=== PATIENT | male | born 1980 | race African-American/Black ===

== ENCOUNTER 2023-01-10 13:57 | Emergency (ER) | payer OTHER ==
[~2023-01-10] VITALS: Ht 165.1 cm; Wt 90.7 kg
[2023-01-10 14:00] VITALS: BP 143/80
[2023-01-10 18:20] VITALS: BP 159/86
--- NOTE | 2023-01-10 18:20 | NUR ---
Patient discharged with v/s stable. Written and verbal after care instructions ABOUT INSOMNIA given and explained. Patient verbalized understanding. Ambulatory with steady gait. All questions addressed prior to discharge. Advised to follow up with PMD. DR VAMSHI RAYMOND WITH BP. PT DID NOT TAKE HTN MEDS THIS MORNING. PT EDUCATED ON IMPORTANCE.
== END 2023-01-10 18:20 | disposition home or self-care (01) ==
LOC: MED 13:57
DX: G47.53 Recurrent isolated sleep paralysis (principal); I10 Essential (primary) hypertension; Z79.899 Other long term (current) drug therapy
CPT/HCPCS: 99283